=== PATIENT | male | born 1965 | race Caucasian/White ===

== ENCOUNTER 2020-10-24 19:36 | Emergency (ER) | payer OTHER, MEDICAID ==
[~2020-10-24] VITALS: Ht 170.2 cm; Wt 77.1 kg
[2020-10-24 19:36] VITALS: BP 139/90
[2020-10-24] MEDS ORDERED: LIDOCAINE 1% HCL (LOCAL ANESTH.) INJ 20ML MDV IJ ONE (19:45)
[2020-10-24] MEDS ORDERED: TETANUS-DIPTH-ACEL PERTUSSIS 0.5ML SYR Tdap IM ONE (20:30)
== END 2020-10-24 21:05 | disposition home or self-care (01) ==
LOC: EDBD 19:36 → ER 19:36
DX: S61.211A Laceration without foreign body of left index finger without damage to nail, initial encounter (principal); I10 Essential (primary) hypertension; W26.0XXA Contact with knife, initial encounter; Y93.89 Activity, other specified; Y92.89 Other specified places as the place of occurrence of the external cause; Y99.8 Other external cause status
CPT/HCPCS: 12002; 90471; 90715; 99283; J2001